=== PATIENT | male | born 1980 | race Caucasian/White ===

== ENCOUNTER 2018-02-21 21:44 | Inpatient (IN) | END 2018-03-03 13:05 | disposition home or self-care (01) | DRG 280 ==

== ENCOUNTER 2018-08-17 19:52 | Inpatient (IN) | END 2018-08-21 15:40 | disposition home or self-care (01) | DRG 292 ==

== ENCOUNTER 2018-12-13 00:06 | Emergency (ER) | payer OTHER ==
[~2018-12-13] VITALS: Ht 175.3 cm; Wt 155.0 kg
[~2018-12-13 00:06] MED LIST: ALBU90AE INHALATION; APIX5TAB PO; ATOR40TA68 PO; CARV25TA79 PO; CYCL10TA7 PO; FLUT1BLS INHALATION; LISI-471 PO; NITR0.4T32 SL; SUMA25TA34 PO
[2018-12-13 00:07] VITALS: Ht 175.3 cm; Wt 155.0 kg
[2018-12-13] MEDS ORDERED: KETOROLAC 15 MG INJ IV STA (00:55)
--- NOTE | 2018-12-13 01:33 | ERD ---
ER Documentation Chief Complaint Chief Complaint C/O LT SIDED CP RADIATING TO LT ARM AND SOB X1 HR, HX OF CO HPI 37-year-old man complains of sharp nonexertional nonradiating chest pain beginning this afternoon about 6-8 hours prior to arrival, he also complains of shortness of breath times 1 hour. Shortness of breath began after he spoke to his girlfriend over the phone. He has had similar episodes of chest pain in the past and use nitroglycerin today with some relief. He has a history of CAD and remote pulmonary embolism and uses anticoagulation with apixaban. He denies recent calf or leg swelling, no cough, no fevers or chills, no dizziness or loss of consciousness, no vomiting or diarrhea. ROS All systems reviewed and are negative except as per history of present illness. Medications Home Meds Active Scripts Naproxen* (Naprosyn*) 500 Mg Tablet, 500 MG PO BID PRN for PAIN AND/OR INFLAMMATION, #30 TAB Prov:JOSE MARTIN MARSHALL MD 12/13/18 Apixaban* (Eliquis*) 5 Mg Tablet, 5 MG PO BID for 30 Days, #60 TAB Prov:ESTER ERWIN MD 03/03/18 Nitroglycerin* (Nitroglycerin* SL) 0.4 Mg Tab.subl, 1 TAB SL Q5M PRN for CHEST PAIN, #90 TAB Prov:SHAAN LAUREANO 02/28/18 Atorvastatin* (Atorvastatin*) 40 Mg Tablet, 40 MG PO HS, #60 TAB Prov:SHAAN LAUREANO 02/28/18 Reported Medications Fluticasone/Vilanterol (Breo Ellipta 200-25 Mcg INH) 1 Each Blst.w.dev, 1 PUFF INHALATION DAILY, #1 INHALER 08/17/18 Albuterol Sulfate (Proair Respiclick) 90 Mcg Aer.pow.ba, 2 PUFFS INHALATION Q4H PRN for WHEEZING AND SOB, #1 BOTTLE 08/17/18 Fluticasone/Vilanterol (Breo Ellipta 200-25 Mcg INH) 1 Each Blst.w.dev, 1 PUFF INHALATION DAILY, #1 INHALER 08/17/18 Carvedilol* (Carvedilol*) 25 Mg Tablet, 12.5 MG PO BID, #60 TAB 08/17/18 Sumatriptan Succinate* (Imitrex*) 25 Mg Tablet, 25 MG PO DAILY, TAB May repeat after 2 hours if needed; MAX 200 mg/24 hours 02/21/18 Cyclobenzaprine Hcl* (Cyclobenzaprine Hcl*) 10 Mg Tablet, 10 MG PO QHS PRN for MUSCLE SPASMS, #60 TAB 02/21/18 Lisinopril* (Lisinopril*) 20 Mg Tablet, 40 MG PO DAILY, #30 TAB 02/21/18 Allergies Allergies: Coded Allergies: No Known Allergy (Unverified , 08/17/18) PMhx/Soc Normal LVEF on recent echo, remote history of PE, anticoagulation with apixaban, obesity, hypertension, home oxygen use History of Surgery: Yes (appendectomy) Anesthesia Reaction: No Hx Neurological Disorder: No Hx Respiratory Disorders: Yes (PE) Hx Cardiac Disorders: Yes (HTN, NSTEMI) Hx Psychiatric Problems: No Hx Miscellaneous Medical Probl: Yes Hx Alcohol Use: No Hx Substance Use: Yes (marijuana, cocaine) Hx Tobacco Use: Yes Smoking Status: Current some day smoker FmHx Family History: No diabetes Physical Exam Vitals Vital Signs Date Temp Pulse Resp B/P (MAP) Pulse Ox O2 O2 Flow FiO2 Time Delivery Rate 12/13/18 76 16 137/85 100 Nasal 2.0 01:49 (102) Cannula 12/13/18 64 18 114/79 99 Room Air 01:13 (91) 12/13/18 97.4 85 26 140/67 99 00:07 (91) Physical Exam Const: No acute distress Head: Atraumatic Eyes: Normal Conjunctiva ENT: Normal External Ears, Nose and Mouth. Neck: Full range of motion. No meningismus. Resp: Clear to auscultation bilaterally Cardio: Regular rate and rhythm, no murmurs Abd: Soft, non tender, non distended. Normal bowel sounds Skin: No petechiae or rashes Back: No midline or flank tenderness Ext: No cyanosis, or edema Neur: Awake and alert x3, no focal deficits or facial asymmetry Psych: Normal Mood and Affect Result Diagram: 12/13/185 12/13/185 Results 24 hrs Laboratory Tests Test 12/13/18 00:45 White Blood Count 4.9 10^3/ul Red Blood Count 4.44 10^6/ul Hemoglobin 13.8 g/dl Hematocrit 41.2 % Mean Corpuscular Volume 92.8 fl Mean Corpuscular Hemoglobin 31.1 pg Mean Corpuscular Hemoglobin Concent 33.5 g/dl Red Cell Distribution Width 11.9 % Platelet Count 197 10^3/UL Mean Platelet Volume 11.7 fl Immature Granulocytes % 0.200 % Neutrophils % 48.3 % Lymphocytes % 38.8 % Monocytes % 10.5 % Eosinophils % 1.8 % Basophils % 0.4 % Nucleated Red Blood Cells % 0.0 /100WBC Immature Granulocytes # 0.010 10^3/ul Neutrophils # 2.4 10^3/ul Lymphocytes # 1.9 10^3/ul Monocytes # 0.5 10^3/ul Eosinophils # 0.1 10^3/ul Basophils # 0.0 10^3/ul Nucleated Red Blood Cells # 0.0 10^3/ul D-Dimer 284.89 ng/ml D-Dimer Comment Sodium Level 142 mmol/L Potassium Level 4.1 mmol/L Chloride Level 102 mmol/L Carbon Dioxide Level 21 mmol/L Anion Gap 19 Blood Urea Nitrogen 24 mg/dl Creatinine 0.95 mg/dl Est Glomerular Filtrat Rate mL/min > 60 mL/min Glucose Level 105 mg/dl Calcium Level 10.2 mg/dl Total Bilirubin 0.6 mg/dl Direct Bilirubin 0.00 mg/dl Indirect Bilirubin 0.6 mg/dl Aspartate Amino Transf (AST/SGOT) 29 IU/L Alanine Aminotransferase (ALT/SGPT) 28 IU/L Alkaline Phosphatase 104 IU/L Troponin I < 0.012 ng/ml B-Type Natriuretic Peptide 64 PG/ML Total Protein 8.2 g/dl Albumin 4.6 g/dl Globulin 3.60 g/dl Albumin/Globulin Ratio 1.27 Lipase 71 U/L Current Medications Medications Dose Sig/Michi Start Time Status Last (Trade) Ordered Route PRN Stop Time Admin Dose Reason Admin Ketorolac 15 mg ONCE STAT 12/13/18 DC 12/13/18 Tromethamine IV 00:55 01:05 (Toradol) 12/13/18 00:57 Procedures/MDM IV line was established patient was placed on phototypesetting equipment monitor rhythm strip revealed a sinus rhythm at about 80 bpm with upright P and T waves. Patient was afebrile One AP view of the chest performed, read by me reveals no acute infiltrates, normal mediastinum, sharp costophrenic and cardiac borders, no air under the diaphragm. Otherwise unremarkable chest x-ray. EKG performed, read by me revealed a normal sinus rhythm 85 bpm, normal axis, narrow QRS complex, no concerning ST elevations or depressions noted I administered Toradol 15 mg IV x1 for complaints of pain CBC was normal, electrolytes revealed mild dehydration, liver function tests were normal, troponin was negative, BNP was low, d-dimer was low. Patient has chronic respiratory issues and is on 24-hour home oxygen us, he also has multiple concerning medical conditions although today's episode of chest pain has resolved while in the ED and his vital signs are normal. Even off of oxygen his oxygen saturation was 100% and his vital signs are normal here in the ER. He has no further complaints of chest pain and can be managed as an outpatient. I reviewed his past medical history and last inpatient workup. Differential diagnoses considered, included but not limited to acute coronary syndrome, pulmonary embolism, aortic dissection, abdominal aortic aneurysm, sepsis, stroke, meningitis, encephalitis, pneumonia, appendicitis, cholecystitis, bowel obstruction, pyelonephritis, nephrolithiasis, cystitis, as well as metabolic, hematologic, and electrolyte abnormalities. As well as abscess, cellulitis, fractures, and dislocations. Patient feels much better at this time, and vital signs are normal, symptoms have improved. I did give strict instructions to return to the ED if symptoms continue or worsen, patient will otherwise follow-up with primary care physician. Patient understood instructions and agreed to plan. Disclaimer: Inadvertent spelling and grammatical errors are likely due to EHR/dictation software use and do not reflect on the overall quality of patient care. Also, please note that the electronic time recorded on this note does not necessarily reflect the actual time of the patient encounter. Departure Diagnosis: Primary Impression: Chest pain Chest pain type: unspecified Qualified Codes: R07.9 - Chest pain, unspecified Condition: JOSE MARTIN Chew MD Dec 13, 2018 01:33
[2018-12-13] MEDS ORDERED: NAPR-985 PO (02:03)
[2018-12-13 02:38] VITALS: BP 135/78; PULSE 82; RESP 16
== END 2018-12-13 02:40 | disposition home or self-care (01) ==
LOC: E/R 00:06
DX: R07.9 Chest pain, unspecified (principal); I10 Essential (primary) hypertension; E66.9 Obesity, unspecified; I25.2 Old myocardial infarction; F17.210 Nicotine dependence, cigarettes, uncomplicated; I25.10 Atherosclerotic heart disease of native coronary artery without angina pectoris; Z79.01 Long term (current) use of anticoagulants
CPT/HCPCS: 36415; 71045; 80053; 83690; 83880; 84484; 85025; 85378; 93005; 96374; J1885; Z7502